=== PATIENT | female | born 1990 | race Caucasian/White ===

== ENCOUNTER 2018-02-18 16:23 | Emergency (ER) | payer OTHER ==
[~2018-02-18] VITALS: Ht 162.6 cm; Wt 48.4 kg
[2018-02-18 16:36] VITALS: BP 121/70
== END 2018-02-18 17:09 | disposition home or self-care (01) ==
LOC: ER 16:24
DX: O26.891 Other specified pregnancy related conditions, first trimester (principal); R10.31 Right lower quadrant pain; R07.81 Pleurodynia; R11.0 Nausea; Z3A.01 Less than 8 weeks gestation of pregnancy
CPT/HCPCS: 99283